=== PATIENT | female | born 2000 | race Caucasian/White ===

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

== ENCOUNTER 2021-01-03 18:56 | Emergency (ER) | payer OTHER ==
[~2021-01-03 18:56] MED LIST changes: +OMNICEF 300 MG300 MG PO
[2021-01-03] MEDS ORDERED: LODINE CAP 300300 MG PO (21:42)
== END 2021-01-03 22:08 | disposition home or self-care (01) ==
LOC: ER1 18:56
DX: S43.401A Unspecified sprain of right shoulder joint, initial encounter (principal); S66.911A Strain of unspecified muscle, fascia and tendon at wrist and hand level, right hand, initial encounter; S20.212A Contusion of left front wall of thorax, initial encounter; V86.69XA Passenger of other special all-terrain or other off-road motor vehicle injured in nontraffic accident, initial encounter; J45.909 Unspecified asthma, uncomplicated; F17.210 Nicotine dependence, cigarettes, uncomplicated; Y92.410 Unspecified street and highway as the place of occurrence of the external cause
CPT/HCPCS: 71101; 73030; 73110; 99283